=== PATIENT | female | born 1990 | race American Indian/Alaskan Native ===

== ENCOUNTER 2016-12-18 00:49 | Emergency (ER) | payer MEDICAID ==
--- NOTE | 2016-12-18 01:23 | C.PDOC ---
History Of Present Illness patient presents with laryngitis for about 7 days and some shortness of breath for the last 2 days. Speaking in complete sentences. No f/c/n/v. Pt is 20 weeks Time Seen by Provider: 12/18/16 01:10 Chief Complaint (Nursing): Cough, Cold, Congestion History Per: Patient History/Exam Limitations: no limitations Onset/Duration Of Symptoms: Days (2) Current Symptoms Are (Timing): Still Present Location Of Pain: Throat Sick Contacts (Context): None Associated Symptoms: Sore Throat. denies: Fever, Chills Ear Symptoms: Bilateral: None Severity: Mild Pain Scale Rating Of: 3 Recent travel outside of the [place]: No Additional History Per: Patient Past Medical History Reviewed: Historical Data, Nursing Documentation, Vital Signs Vital Signs: Last Vital Signs Temp 98.5 F 12/18/16 00:54 Pulse 98 H 12/18/16 00:54 Resp 22 12/18/16 00:54 BP 143/83 12/18/16 00:54 Pulse Ox 98 12/18/16 01:41 Family History: States: No Known Family Hx - Social History Hx Alcohol Use: No Hx Substance Use: No - Immunization History Hx Tetanus Toxoid Vaccination: No Hx Influenza Vaccination: Yes Hx Pneumococcal Vaccination: No Review Of Systems Constitutional: Negative for: Fever, Chills ENT: Positive for: Throat Pain Cardiovascular: Negative for: Chest Pain, Palpitations Respiratory: Positive for: Shortness of Breath Gastrointestinal: Negative for: Nausea, Vomiting, Abdominal Pain Genitourinary: Negative for: Dysuria Musculoskeletal: Negative for: Back Pain Skin: Negative for: Rash, Lesions, Jaundice, Bruising Neurological: Negative for: Weakness Psych: Negative for: Anxiety Physical Exam - Physical Exam Appears: Non-toxic, No Acute Distress Skin: Warm, Dry Nose: No Discharge, No Tenderness Oral Mucosa: Moist Throat: Erythema (mild) Neck: Supple Chest: Symmetrical Cardiovascular: Rhythm Regular Respiratory: No Decreased Breath Sounds, No Rales, No Rhonchi, No Wheezing Gastrointestinal/Abdominal: Soft, Other (gravid) Extremity: Bilateral: Atraumatic, Normal Color And Temperature Neurological/Psych: Oriented x3, Normal Speech, Normal Cognition Gait: Steady ED Course And Treatment O2 Sat by Pulse Oximetry: 98 Pulse Ox Interpretation: Normal Progress Note: nebs Reevaluation Time: 03:28 Reassessment Condition: Improved Medical Decision Making Medical Decision Making: Upon provider reevaluation patient is feeling better, is medically stable, and requires no further treatment in the ED at this time. Patient will be discharged home with Rx for Albuterol. Counseling was provided and all questions were answered regarding diagnosis and need for follow up with the referred clinic. There is agreement to discharge plan. Return if symptoms persist or worsen. Disposition Counseled Patient/Family Regarding: Studies Performed, Diagnosis, Need For Followup, Rx Given - Disposition Referrals: [facility] [Outside] [facility] [Outside] Disposition: HOME/ ROUTINE Disposition Time: :23 Condition: IMPROVED Additional Instructions: Please return if symptoms recur Prescriptions: Albuterol HFA [Ventolin HFA 90 mcg/actuation (8 g)] 2 puff IH [id number] PRN #1 puff PRN Reason: shortness of breath Instructions: Reactive Airways Disease (DC) - Clinical Impression Clinical Impression: Reactive airway disease
[2016-12-18] MEDS ORDERED: Albuterol-Ipratrop 3 mg / 0.5 (3 ml) UD ONE ×2 (01:40→01:47)
[2016-12-18] MEDS: Albuterol-Ipratrop 3 mg / 0.5 (3 ml) UD IH SCH ×2 (01:40→01:49)
[2016-12-18 03:42] VITALS: BP 124/75; PULSE 84; RESP 18; TEMP 98.6; O2SAT 99
== END 2016-12-18 03:42 | disposition home or self-care (01) ==
LOC: SUPCPDRO 00:49 → C.ER 00:49
DX: O99.512 Diseases of the respiratory system complicating pregnancy, second trimester (principal); J98.9 Respiratory disorder, unspecified; Z3A.20 20 weeks gestation of pregnancy

== ENCOUNTER 2017-04-03 11:06 | Inpatient (IN) | payer MEDICAID, OTHER ==
[2017-04-03] MEDS ORDERED: Penicillin G 5 Million Unit Vial IVPB ONE ×2 (12:02→12:04)
[2017-04-03 12:04] VITALS: BMI 30.4
[2017-04-03] MEDS ORDERED: Lactated Ringer's 1,000 ML IV SCH ×2 (12:15)
[2017-04-03 12:56] LABS: BASO % 0.3 % (0.0-2.0); EOS % 0.2 % (0.0-4.0); HEMOGLOBIN 12.2 g/dL (11.0-16.0); LYMPH % 24.1 % (20.0-40.0); MEAN CELL VOLUME 96.4 fL (81.0-99.0); MEAN CORPUSCULAR HEMOGLOBIN 31.5 pg (27.0-31.0); MEAN CORPUSCULAR HGB CONC 32.6 g/dL (33.0-37.0); MEAN PLATELET VOLUME 10.8 fL (7.2-11.7); NEUT # 5.3 K/uL (1.8-7.0); NEUT % 63.4 % (50.0-75.0); NRBC % 0.2 % (0.0-2.0); RBC 3.86 Mil/uL (3.80-5.20); RED CELL DISTRIBUTION WIDTH 13.8 % (11.5-14.5); WHITE BLOOD COUNT 8.3 K/uL (4.8-10.8)
[2017-04-03 13:06] LABS: ALBUMIN 3.5 g/dL (3.5-5.0)
[2017-04-03 13:09] LABS: ALB/GLOB RATIO 0.9 (1.0-2.1); AST/SGOT 28 U/L (14-36); GFR AFRICAN-AMERICAN > 60; GFR NON-AFRICAN AMERICAN > 60
[2017-04-03 13:10] LABS: ALT/SGPT 42 U/L (9-52); BLOOD UREA NITROGEN 6 mg/dL (7-17); CALCIUM 9.3 mg/dl (8.6-10.4)
[2017-04-03] MEDS ORDERED: Bupivacaine 0.125%/FentaNYL 200 ML EPI ONE (13:14)
[2017-04-03 13:25] LABS: SQUAMOUS EPITHIAL 19 /hpf (0-5); URINE BACTERIA RARE (<OCC); URINE BILIRUBIN NEGATIVE (NEGATIVE); URINE BLOOD NEGATIVE (NEGATIVE); URINE CLARITY Hazy (Clear); URINE COLOR Amber (YELLOW); URINE GLUCOSE (UA) NORMAL (Normal); URINE LEUKOCYTE ESTERASE 2+ Leu/uL (Negative); URINE NITRATE NEGATIVE (NEGATIVE); URINE PROTEIN 2+ mg/dL (NEGATIVE)
[2017-04-03] MEDS ORDERED: Oxytocin 30 UNIT 30 UNITS/500 ML BAG IV PRN (13:54)
[2017-04-03] MEDS ORDERED: Oxytocin 30 UNIT 30 UNITS/500 ML BAG IV ONE (13:55)
[2017-04-03] MEDS ORDERED: Benzocaine/Menthol 20%-0.5% Topical Spray (60 ml) TOP PRN (17:03)
[2017-04-03] MEDS ORDERED: Acetaminophen-Codeine 300/30 mg Tab PO PRN (17:03)
--- NOTE | 2017-04-03 18:02 | OBDS ---
DELIVERY PERSONNEL Delivery Doctor: Hudson Moctezuma MD Instruction Dean: Minesh De RN Anesthesiologist: Hudson Villanueva MD MATERNAL INFORMATION Delivery Anesthesia: Epidural Medications in Delivery: pitocin 20 Estimated Blood Loss (ml): 200 Placenta Cultured: No Maternal Complications: None Provider Comments: Uncomplicated vaginal delivery, live male infant, DILLAN position, over intact perin eum. Apgars 9/9; weight 7lb 10 oz. placed on mother's abdomen, after umbilical cord doubly cla mped and cut. Spontaneous delivery of placenta - grossly intact; 3 vessels in cord. Examination of c ervix, vagina, perineum - no lacerations Mother and bonding; both in stable. condition LABOR SUMMARY EDC: 04/14/2017 00:00 No. Babies in Womb: 1 Attempted: No Labor Anesthesia: Epidural LABOR INFORMATION Reason for Induction: Not Applicable Onset of Labor: 04/03/2017 12:00 Complete Dilatation: 04/03/2017 16:30 Oxytocin: Augmentation Group B Beta Strep: Positive Antibiotics # of Doses: 2 Antibiotics Time of Last Dose: 1600 Steroids Given: None Reason Steroids Not Administered: Not Applicable MEMBRANES Membranes Rupture Method: Spontaneous Rupture of Membranes: 04/03/2017 16:30 Length of Rupture (hrs): 0.03 Amniotic Fluid Color: Light Meconium Amniotic Fluid Amount: Moderate Amniotic Fluid Odor: Normal STAGES OF LABOR Stage 1 hrs: 4 Stage 1 min: 30 Stage 2 hrs: 0 Stage 2 min: 2 Stage 3 hrs: 0 Stage 3 min: 18 Total Time in Labor hrs: 4 Total Time in Labor min: 50 VAGINAL DELIVERY Episiotomy: None Laceration Extension: N/A Laceration Type: None Laceration Repair Note: N/A Initial Vag Sponge Count: 10 Final Vag Sponge Count: 10 Sponge Count Correct: Yes Count Comment: Correct BABY A INFORMATION Infant Delivery Date/Time: 04/03/2017 16:32 Method of Delivery: Vaginal Born in Route : No : N/A Forceps: N/A Vacuum Extraction: N/A Shoulder Dystocia : No SHOULDER DYSTOCIA BABY A Infant Delivery Date/Time: 04/03/2017 16:32 PRESENTATION/POSITION BABY A Presentation: Cephalic Cephalic Presentation: Vertex Vertex Position: Right Occipital Anterior Breech Presentation: N/A PLACENTA INFORMATION BABY A Placenta Delivery Time : 04/03/2017 16:50 Placenta Method of Delivery: Spontaneous Placenta Status: Delivered SCORES BABY A Heart Rate 1 min: >100 bpm Resp Effort 1 min: Good Cry Reflex Irritability 1 min: Cough or Sneeze or Pulls Away Muscle Tone 1 min: Active Motion Color 1 min: Body [place], Extremities Blue Resuscitation Effort 1 min: Tactile Stimulation SCORE 1 MIN: 9 Heart Rate 5 min: >100 bpm Resp Effort 5 min: Good Cry Reflex Irritability 5 min: Cough or Sneeze or Pulls Away Muscle Tone 5 min: Active Motion Color 5 min: Body [place], Extremities Blue SCORE 5 MIN: 9 INFANT INFORMATION BABY A Gestational Age at Delivery: 38.3 Gestational Status: Term Outcome : Liveborn Condition : Stable Sex: Male IDENTIFICATION/MEDS BABY A ID Band Number: [id number] ID Band Location: Left Leg; Left Arm Sensor Applied: Yes Sensor Number: [id number] Sensor Location : Cord Clamp WEIGHT/LENGTH BABY A Birthweight (gms): 3455 Weight (lb): 7 Weight (oz): 10 Infant Length Inches: 19.50 Length cms: 49.5 CORD INFORMATION BABY A No. Cord Vessels: 3 Nuchal Cord : N/A Cord Blood Taken: Yes Infant Suction: Mouth; Nose ASSESSMENT BABY A Complications: None Physical Findings at Delivery: Within Normal Limits Respirations: Appears Normal Cosmetics Presser/ALS Called : No Care By: dr marquis Transferred To: Remains with Mother
--- NOTE | 2017-04-03 18:19 | OBHP ---
Datetime: 04/03/2017 11:51 IP Adm Impression: Term, intrauterine ; Active labor; Intact Membranes IP Admit Plan: Admit to unit; Initiate labor augmentation protocol IP Admit Plan Other: GBS(+) Admit Comment, IP Provider: 27 y.o. , LMP unsure; [place] 04/14/17, EGA 38 weeks 3 days, C/O contrac tions, onset 0900 hours, pain scalle now 03/01 to 03/31. (+) AFM; denies LOF, VB. care: [facility]; GBS(+). No other issues P Ob: x 1: 2010, female, 6lb 7oz, [facility]; nocomplications P [employer] WORK[employer]: 14 x monthly x 5. Denies h/o STIs or abnormal Pap PMH: denies PSH: denies NKDA Meds: PNV - QD Soc Hx: denies tobacco, illicit drug or EtOH use. Lives with her daughter; FOB involved - together x 5 years. Teacher - toddlers Fam Hx: Mother age 40s. Father age 50s - both, from compicaitons of AIDS. No kn own fam h/o cancer P.E.: as above. WD in pain with contractions. Awake, alert, oriented to time, person and place. Pl easant and cooperative Assessment: 27 y.o. P1, 38w 3d, active labor. GBS (+). Category 1 tracing. D/W patient: possible p itocin augmentation; receptive to epidural. Clinically stable. Plan: 1) Admit 2) NPO 3) IVFs 4) Continuous EFM 5) Admission labs 6) Epidural 7) Anticipate vaginal delivery Pelvic Type - PN: Adequate Extremities - PN: Normal Abdomen - PN: Normal Back - PN: Normal Breast - PN: Not Done Lungs - PN: Normal Thyroid - PN: Not Done Neurologic - PN: Normal HEENT - PN: Normal General - PN: Normal Presentation-Admit: Vertex FHR - Baseline A Provider: 150 Membranes, Provider: Intact Contraction Comments Provider: 8 Comments, ACOG Physical Exam: Abdomen: Gravid. Firm with contractions. Fundal height 40 cm All other systems reviewed and are negative Gestation - Est Wks by US: 38w 3d IP Hx Assessment: The History has been Reviewed and is Current EGA AdmitDate IP: 38.3 Vital Signs Provider: Reviewed IP Indication for Induction: Not Applicable IP Chief Complaint: Uterine contractions NICHD Variability Prov Fetus A: Moderate 6-25bpm NICHD Accel Fetus A IP Provider: 10X10 FHR Category Provider Fetus A: Category I NICHD Decel Fetus A IP Provider: Early Dilatation, Provider: 6 Effacement, Provider: 50 Station, Provider: -3 Genitourinary Exam: Normal DTRs - PN: Not Done
--- NOTE | 2017-04-03 18:28 | OBPN ---
Datetime: 04/03/2017 13:57 IP Progress Plan: Continue present management; Augmentation; Anticipate Vaginal Delivery Contraction Comments Provider: 3-5 FHR - Baseline A Provider: 140 IP Progress Note Comment: S/P epidural V.E.: as above. Assessment: P1, protracted active phase of labor. Category 1 tracing. GBS positive Plan: 1) Start pitocin 2) Continue penicillin 3) Anticipate vaginal delivery NICHD Accel Fetus A IP Provider: 15X15 FHR Category Provider Fetus A: Category I NICHD Variability Prov Fetus A: Moderate 6-25bpm Dilatation, Provider: 6 Effacement, Provider: 90 Station, Provider: -3 NICHD Decel Fetus A IP Provider: None Datetime: 04/03/2017 11:51 Membranes, Provider: Intact Gestation - Est Wks by US: 38w 3d Presentation-Admit: Vertex Vital Signs Provider: Reviewed
--- NOTE | 2017-04-03 18:36 | OBPN ---
Datetime: 04/03/2017 15:19 IP Progress Impression Other: deceleration IP Progress Plan: Continue present management; Augmentation; Anticipate Vaginal Delivery Membranes, Provider: Intact Contraction Comments Provider: 1 FHR - Baseline A Provider: 140 Gestation - Est Wks by US: 38w 3d Presentation-Admit: Vertex IP Progress Note Comment: FHR tracing noted for deceleration Patient received in bed; comfortable. V.E.: as above Assessment: P1, 38w 3d, pitocin augmentation; making adequate progress. Patient placed on left lat eral, oxygen applied by face mask. After observation, no recurrence of decelerations - now Category 1 tracing. GBS (+). Clinically stable. Plan: 1) Continue present management 2) Anticipate vaginal delivery NICHD Accel Fetus A IP Provider: 10X10 FHR Category Provider Fetus A: Category II NICHD Variability Prov Fetus A: Moderate 6-25bpm Dilatation, Provider: 8 Effacement, Provider: 90 Station, Provider: -3 NICHD Decel Fetus A IP Provider: Variable
[2017-04-03 20:36] VITALS: RESP 20
[2017-04-04 07:40] LABS: MEAN CELL VOLUME 96.7 fL (81.0-99.0); MEAN CORPUSCULAR HEMOGLOBIN 30.9 pg (27.0-31.0); MEAN PLATELET VOLUME 10.5 fL (7.2-11.7); RBC 3.57 Mil/uL (3.80-5.20); RED CELL DISTRIBUTION WIDTH 14.6 % (11.5-14.5)
[2017-04-04] MEDS: Multiple Vitamins Tab PO SCH (10:53)
--- NOTE | 2017-04-04 13:53 | OBPPN ---
Datetime: 04/04/2017 08:27 PP Pain Prov: Within normal limits PP Nausea Prov: Denies PP Flatus Prov: Yes PP Heart Prov: Normal PP Lungs Prov: Normal PP Abdomen/Uterus Prov: Normal PP Lochia Prov: Normal PP Vulva/Perineum Prov: Normal PP CVA Tenderness Prov: Normal PP Extremities Prov: Normal PP C/S Incision Prov: Not Applicable PP Progress Prov: Normal PP Impression Prov: Normal progression PP Plan Prov: Continue present management PP Progress Note Prov: S-patient denies any complaints.Tolerating regular diet.ambulating and voidin g with out difficulty.denies nausea, vomiting, headache, chest pain, shortness of breath, numbness or tingling in handsa nd feet O-VSS afebrile Abdomen soft and nontender Fundus firm and below umbilicus Extremities no calf tenderness A/P Patient s/p vaginal delivery ppd 1 doing well -continue routine pp care Vital Signs Provider PP: Reviewed; Within Normal Limits
--- NOTE | 2017-04-05 07:48 | OBPPN ---
Datetime: 04/05/2017 07:47 PP Pain Prov: Within normal limits PP Nausea Prov: Denies PP Flatus Prov: Yes PP Abdomen/Uterus Prov: Normal PP Lochia Prov: Normal PP Extremities Prov: Normal PP Comments Phys Exam Prov: fudus below umb ext no edema,no calf ten PP Impression Prov: Normal progression PP Plan Prov: Discharge PP Progress Note Prov: pt was seen at berd side, pain under control, no n/v, tolerating deit,voiding ,min lochia, flatus+ ppd#2 s/p dc home no sex motrin prn f/u in 6weeks Vital Signs Provider PP: Reviewed; Within Normal Limits
--- NOTE | 2017-04-05 07:50 | OBDCSUM ---
Datetime: 04/05/2017 07:48 Discharged to, Provider: Home Follow up at, Provider: 6weks Disch Instr Activity: Normal activity Disch Instr Diet: Regular Discharge Diagnosis, Provider: Term Delivered Follow up in weeks, Provider: clinic Disch Activity Restrictions: No exercising; No lifting; No driving; Minimize walking; Minimize stair -climbing; No sexual activity; Nothing in vagina - [place], tampons, douche Discharge Comment, Provider: no sex motrin prn f/u in 6week Discharge Diagnosis Prov Other: s/p vaccum delivery
[2017-04-05] MEDS: Multiple Vitamins Tab PO SCH (09:31)
[2017-04-05 12:21] VITALS: BP 113/72; PULSE 69; TEMP 98.4
[2017-04-05 12:53] VITALS: O2SAT 99
== END 2017-04-05 12:45 | disposition home or self-care (01) | DRG 373 ==
LOC: C.EROB 11:06 → C.4D 11:50 → C.4M 18:00
PROVIDERS: ADMIT Obstetrics & Gynecology; ATTEND Obstetrics & Gynecology
PROC: 10E0XZZ Delivery of Products of Conception, External Approach (ICD-10-PCS; principal; 2017-04-03)
DX: O99.824 Streptococcus B carrier state complicating childbirth (principal); Z3A.38 38 weeks gestation of pregnancy; Z37.0 Single live birth